=== PATIENT | female | born 1960 | race Caucasian/White ===

== ENCOUNTER 2017-10-23 14:01 | Day surgery (SDC) | payer OTHER ==
[~2017-10-23] VITALS: Ht 165.1 cm; Wt 103.6 kg
[~2017-10-23 14:01] MED LIST: ALBIPROI INH; ALBU90OI INH; ALBU90OI61 INH; AMLO10 PO; AMLO5 PO; ANORO ELLIPTA1 EACH INH; AZIT250 PO; BUPR150ER PO; CEPH500 PO; CODGUAEL PO; Citalopram HBr10 MG PO; FLUSAL1005 INH; Flonase 0.05% N16 GM; HYDACE5 PO; HYDR1TAB94 PO; LEVSOD100 PO; LEVSOD150 PO; LOSA25 PO; LOSA50 PO; MECL25 PO; NITR100CA PO; Naprosyn375 MG PO; Omeprazole20 M1 PO; PRED20 PO; QVAR REDIHALE10.6 G1 INH; STIOLTO RESPIMAT4 GM INH; SULTRIDS PO; Synthroid175 MCG PO; VARE1 PO; [UNRECOGNIZED DRUG - REMARK]
[2017-10-23] MEDS ORDERED: COMBIVENT RESPIM4 GM (14:19)
[2017-10-23] MEDS ORDERED: Flovent 44 mc10.6 GM (14:21)
[2017-10-23] MEDS ORDERED: Percocet 5-3251 EACH (14:21)
== END 2017-10-23 15:42 | disposition home or self-care (01) ==
LOC: ORSCSDS 14:01
PROVIDERS: Internal Medicine Gastroenterology
PROC: 0D758ZZ Dilation of Esophagus, Via Natural or Artificial Opening Endoscopic (ICD-10-PCS; 2017-10-23)
PROC: 0DB68ZX Excision of Stomach, Via Natural or Artificial Opening Endoscopic, Diagnostic (ICD-10-PCS; principal; 2017-10-23 15:30)
DX: R13.10 Dysphagia, unspecified (principal); K29.70 Gastritis, unspecified, without bleeding; K21.9 Gastro-esophageal reflux disease without esophagitis; R10.9 Unspecified abdominal pain; J44.9 Chronic obstructive pulmonary disease, unspecified; E03.9 Hypothyroidism, unspecified; Z68.38 Body mass index [BMI] 38.0-38.9, adult; F17.210 Nicotine dependence, cigarettes, uncomplicated; E66.9 Obesity, unspecified; Z79.899 Other long term (current) drug therapy
CPT/HCPCS: J2250; J7120

== ENCOUNTER 2017-11-06 00:36 | Observation (INO) | payer OTHER ==
[~2017-11-06] VITALS: Ht 165.1 cm; Wt 82.7 kg
[~2017-11-06 00:36] MED LIST changes: +COMBIVENT RESPIM4 GM; +Flovent 44 mc10.6 GM INH; +Percocet 5-3251 EACH PO
[2017-11-06] MEDS ORDERED: Prednisone20 MG PO (01:53)
[2017-11-06 02:29] LABS: BASOPHILS ABSOLUTE AUTO 0.11 K/mm3 (0.00-0.23); BASOPHILS PERCENT AUTO 1 % (0-2); EOSINOPHILS ABSOLUTE AUTO 0.32 K/mm3 (0.00-0.68); EOSINOPHILS PERCENT AUTO 4 % (0-6); Hematocrit 41.3 % (33.0-51.0); Hemoglobin 13.5 g/dL (11.5-16.0); IMMATURE GRAN ABSOLUTE AUTO 0.04 K/mm3 (0.00-0.10); IMMATURE GRAN PERCENT AUTO 1 % (0-1); LYMPHOCYTES ABSOLUTE AUTO 3.86 K/mm3 (0.84-5.20); LYMPHOCYTES PERCENT AUTO 44 % (21-46); MONOCYTES ABSOLUTE AUTO 0.71 K/mm3 (0.16-1.47); MONOCYTES PERCENT AUTO 8 % (4-13); Mean Corpuscular HGB 29.2 pg (26.0-34.0); Mean Corpuscular HGB Conc 32.7 g/dL (31.5-36.5); Mean Corpuscular Volume 89 fL (80-100); Mean Platelet Volume 10.1 fL (9.1-12.4); NEUTROPHILS ABSOLUTE AUTO 3.74 K/mm3 (1.96-9.15); NEUTROPHILS PERCENT AUTO 43 % (41-73); Platelet Count 277 K/mm3 (150-400); RDW Coefficient Variation 13.8 % (11.7-14.2); RDW Standard Deviation 44.5 fL (35.1-46.3); Red Blood Cell Count 4.63 M/mm3 (3.80-5.20); White Blood Cell Count 8.78 K/mm3 (4.00-11.30)
[2017-11-06 02:40] LABS: Alanine Aminotransfer (ALT/SGP 38 U/L (12-78); Albumin, Blood 3.4 g/dL (3.4-5.0); Albumin/Globulin Ratio 0.8 (0.8-1.8); Alk Phos 103 U/L (50-136); Anion Gap 13 mmol/L (6-16); Aspartate Aminotrans (AST/SGOT 25 U/L (12-37); Bilirubin, Total 0.2 mg/dL (0.1-1.0); Blood Urea Nitrogen 14 mg/dL (8-24); Bun/Creatinine Ratio 14.6 (12.0-20.0); CO2, Blood 19 mmol/L (21-32); Calcium, Blood 8.1 mg/dL (8.5-10.1); Chloride, Blood 109 mmol/L (98-108); Creatinine, Blood 0.96 mg/dL (0.40-1.00); Globulin, Blood 4.4 g/dL (2.2-4.0); Glomerular Filtration Rate >60 (60-); Glucose, Blood 115 mg/dL (70-99); Potassium, Blood 3.8 mmol/L (3.5-5.5); Sodium, Blood 141 mmol/L (136-145); Total Protein, Blood 7.8 g/dL (6.4-8.2)
[2017-11-06 02:42] LABS: Influenza A Negative (NEGATIVE); Influenza B Negative (NEGATIVE)
[2017-11-06 15:30] LABS: Hematocrit 40.4 % (33.0-51.0); Hemoglobin 12.9 g/dL (11.5-16.0); Mean Corpuscular HGB 28.9 pg (26.0-34.0); Mean Corpuscular HGB Conc 31.9 g/dL (31.5-36.5); Mean Corpuscular Volume 91 fL (80-100); Mean Platelet Volume 9.9 fL (9.1-12.4); Platelet Count 230 K/mm3 (150-400); RDW Coefficient Variation 13.7 % (11.7-14.2); RDW Standard Deviation 46.4 fL (35.1-46.3); Red Blood Cell Count 4.46 M/mm3 (3.80-5.20); White Blood Cell Count 5.52 K/mm3 (4.00-11.30)
[2017-11-06 15:49] LABS: Alanine Aminotransfer (ALT/SGP 34 U/L (12-78); Albumin, Blood 3.3 g/dL (3.4-5.0); Albumin/Globulin Ratio 0.8 (0.8-1.8); Alk Phos 89 U/L (50-136); Anion Gap 9 mmol/L (6-16); Aspartate Aminotrans (AST/SGOT 22 U/L (12-37); Bilirubin, Total 0.2 mg/dL (0.1-1.0); Blood Urea Nitrogen 16 mg/dL (8-24); CO2, Blood 21 mmol/L (21-32); Calcium, Blood 8.7 mg/dL (8.5-10.1); Chloride, Blood 108 mmol/L (98-108); Creatinine, Blood 0.89 mg/dL (0.40-1.00); Globulin, Blood 4.2 g/dL (2.2-4.0); Glomerular Filtration Rate >60 (60-); Glucose, Blood 134 mg/dL (70-99); Potassium, Blood 4.8 mmol/L (3.5-5.5); Sodium, Blood 138 mmol/L (136-145); Total Protein, Blood 7.5 g/dL (6.4-8.2)
[2017-11-08 05:27] LABS: BASOPHILS ABSOLUTE AUTO 0.01 K/mm3 (0.00-0.23); BASOPHILS PERCENT AUTO 0 % (0-2); EOSINOPHILS PERCENT AUTO 0 % (0-6); Hematocrit 39.7 % (33.0-51.0); Hemoglobin 12.6 g/dL (11.5-16.0); IMMATURE GRAN ABSOLUTE AUTO 0.19 K/mm3 (0.00-0.10); IMMATURE GRAN PERCENT AUTO 2 % (0-1); LYMPHOCYTES ABSOLUTE AUTO 0.64 K/mm3 (0.84-5.20); LYMPHOCYTES PERCENT AUTO 7 % (21-46); MONOCYTES ABSOLUTE AUTO 0.35 K/mm3 (0.16-1.47); MONOCYTES PERCENT AUTO 4 % (4-13); Mean Corpuscular HGB Conc 31.7 g/dL (31.5-36.5); Mean Corpuscular Volume 92 fL (80-100); Mean Platelet Volume 10.7 fL (9.1-12.4); NEUTROPHILS ABSOLUTE AUTO 7.72 K/mm3 (1.96-9.15); NEUTROPHILS PERCENT AUTO 87 % (41-73); Platelet Count 240 K/mm3 (150-400); RDW Coefficient Variation 14.3 % (11.7-14.2); RDW Standard Deviation 48.1 fL (35.1-46.3); Red Blood Cell Count 4.34 M/mm3 (3.80-5.20); White Blood Cell Count 8.91 K/mm3 (4.00-11.30)
[2017-11-08] MEDS ORDERED: ALBU90OI INH (12:27)
[2017-11-08] MEDS ORDERED: ACET325 PO (12:32)
[2017-11-08] MEDS ORDERED: BISA10S PR (12:37)
[2017-11-08] MEDS ORDERED: Tessalon200 MG PO (12:38)
[2017-11-08] MEDS ORDERED: ROBITUSSIN100 MG/5 M PO (12:40)
[2017-11-08] MEDS ORDERED: DOCU100 PO (12:40)
[2017-11-08] MEDS ORDERED: ONDA4ODT PO (12:41)
[2017-11-08] MEDS ORDERED: NICO21TP TOP (12:42)
[2017-11-08] MEDS ORDERED: AZIT500 PO (12:43)
[2017-11-08] MEDS ORDERED: ALBU3IS INH (13:09)
== END 2017-11-08 16:10 | disposition home or self-care (01) ==
LOC: ER 00:36 → MEDS 00:37 → ER 02:16 → MEDS 02:54 → ENPENDDIS 11-08 12:00 → MEDS 11-08 16:10
PROVIDERS: Emergency Medicine; Family Medicine; Internal Medicine
DX: J44.1 Chronic obstructive pulmonary disease with (acute) exacerbation (principal); F41.9 Anxiety disorder, unspecified; I10 Essential (primary) hypertension; E03.9 Hypothyroidism, unspecified; F41.0 Panic disorder [episodic paroxysmal anxiety]; F17.200 Nicotine dependence, unspecified, uncomplicated; Z79.899 Other long term (current) drug therapy; Z79.01 Long term (current) use of anticoagulants
CPT/HCPCS: 36415; 71046; 80053; 83880; 84145; 84443; 85025; 85027; 87804; 90686; 94640; 94760; 94762; 96365; 96372; 96374; 96375; 96376; 99285-25; G0378; J0456; J1650; J1885; J2930; J3010; J3475; J7030; J7050

== ENCOUNTER 2018-02-19 23:36 | Emergency (ER) | payer OTHER ==
[~2018-02-19] VITALS: Ht 162.6 cm; Wt 108.9 kg
[~2018-02-19 23:36] MED LIST changes: +ACET325 PO; +ALBU3IS INH; +AZIT500 PO; +BISA10S PR; +DOCU100 PO; +NICO21TP TOP; +ONDA4ODT PO; +Prednisone20 MG PO; +ROBITUSSIN100 MG/5 M PO; +Tessalon200 MG PO
[2018-02-20] MEDS ORDERED: NICO21TP TOP (00:19)
[2018-02-20 00:23] LABS: BASOPHILS ABSOLUTE AUTO 0.11 K/mm3 (0.00-0.23); BASOPHILS PERCENT AUTO 1 % (0-2); EOSINOPHILS PERCENT AUTO 4 % (0-6); Hematocrit 40.5 % (33.0-51.0); Hemoglobin 13.3 g/dL (11.5-16.0); IMMATURE GRAN ABSOLUTE AUTO 0.05 K/mm3 (0.00-0.10); IMMATURE GRAN PERCENT AUTO 1 % (0-1); LYMPHOCYTES ABSOLUTE AUTO 2.81 K/mm3 (0.84-5.20); LYMPHOCYTES PERCENT AUTO 27 % (21-46); MONOCYTES ABSOLUTE AUTO 0.91 K/mm3 (0.16-1.47); MONOCYTES PERCENT AUTO 9 % (4-13); Mean Corpuscular HGB 29.1 pg (26.0-34.0); Mean Corpuscular HGB Conc 32.8 g/dL (31.5-36.5); Mean Corpuscular Volume 89 fL (80-100); Mean Platelet Volume 10.1 fL (9.1-12.4); NEUTROPHILS PERCENT AUTO 58 % (41-73); Platelet Count 260 K/mm3 (150-400); RDW Coefficient Variation 13.2 % (11.7-14.2); RDW Standard Deviation 43.4 fL (35.1-46.3); Red Blood Cell Count 4.57 M/mm3 (3.80-5.20); White Blood Cell Count 10.28 K/mm3 (4.00-11.30)
[2018-02-20 00:43] LABS: Alanine Aminotransfer (ALT/SGP 36 U/L (12-78); Albumin, Blood 3.5 g/dL (3.4-5.0); Albumin/Globulin Ratio 0.8 (0.8-1.8); Alk Phos 91 U/L (50-136); Anion Gap 11 mmol/L (6-16); Aspartate Aminotrans (AST/SGOT 26 U/L (12-37); Bilirubin, Total 0.2 mg/dL (0.1-1.0); Blood Urea Nitrogen 19 mg/dL (8-24); Bun/Creatinine Ratio 22.1 (12.0-20.0); CO2, Blood 20 mmol/L (21-32); Calcium, Blood 8.8 mg/dL (8.5-10.1); Chloride, Blood 108 mmol/L (98-108); Creatinine, Blood 0.86 mg/dL (0.40-1.00); Globulin, Blood 4.2 g/dL (2.2-4.0); Glomerular Filtration Rate >60 (60-); Glucose, Blood 88 mg/dL (70-99); Potassium, Blood 3.9 mmol/L (3.5-5.5); Sodium, Blood 139 mmol/L (136-145); Total Protein, Blood 7.7 g/dL (6.4-8.2); Troponin I <0.015 ng/mL (0.000-0.040)
[2018-02-20] MEDS ORDERED: Prednisone20 MG PO (00:59)
== END 2018-02-20 01:59 | disposition home or self-care (01) ==
LOC: ER 23:36
PROVIDERS: Emergency Medicine
DX: J44.1 Chronic obstructive pulmonary disease with (acute) exacerbation (principal); Z79.899 Other long term (current) drug therapy; I10 Essential (primary) hypertension; E03.9 Hypothyroidism, unspecified; F41.9 Anxiety disorder, unspecified; F17.200 Nicotine dependence, unspecified, uncomplicated
CPT/HCPCS: 36415; 71046; 80053; 84484; 85025; 93005; 93010; 94640; 96374; 99285-25; J2930

== ENCOUNTER 2018-04-23 00:05 | Emergency (ER) | payer OTHER ==
[~2018-04-23] VITALS: Ht 162.6 cm; Wt 112.0 kg
[2018-04-23] MEDS ORDERED: Prednisone20 MG PO (02:06)
== END 2018-04-23 02:21 | disposition home or self-care (01) ==
LOC: ER 00:05
DX: J44.1 Chronic obstructive pulmonary disease with (acute) exacerbation (principal); Z79.899 Other long term (current) drug therapy; Z79.52 Long term (current) use of systemic steroids; I10 Essential (primary) hypertension; E03.9 Hypothyroidism, unspecified; F41.9 Anxiety disorder, unspecified; F17.210 Nicotine dependence, cigarettes, uncomplicated
CPT/HCPCS: 71046; 93005; 93010; 94640; 96374; 99285-25; J2930; J7030

== ENCOUNTER 2018-08-07 09:45 | Day surgery (SDC) | payer OTHER ==
[~2018-08-07] VITALS: Ht 165.1 cm; Wt 107.4 kg
[2018-08-07] MEDS ORDERED: Zofran4 MG (10:27)
[2018-08-07] MEDS ORDERED: OSCIMIN0.125 MG (10:28)
--- NOTE | 2018-08-07 12:38 | NUR ---
08/07/18 1238 Antonina Galicia 1221 PT. SAT UP TO SIT AT SIDE OF BED & THEN FELT DIZZY. PT. WANTED TO WAIT TO GET DRESSED. PT. BACK INTO BED. PT. VERBALIZES HX OF GETTING DIZZY SPELLS & HAS A PROCEDURE SCHEDULED TO CHECK HER DIZZINESS.
== END 2018-08-07 12:29 | disposition home or self-care (01) ==
LOC: ORSCSDS 09:45
PROVIDERS: Internal Medicine Gastroenterology
PROC: 0DBE8ZX Excision of Large Intestine, Via Natural or Artificial Opening Endoscopic, Diagnostic (ICD-10-PCS; principal; 2018-08-07 11:15)
PROC: 0DBK8ZX Excision of Ascending Colon, Via Natural or Artificial Opening Endoscopic, Diagnostic (ICD-10-PCS; principal; 2018-08-07 11:15)
PROC: 0DBN8ZX Excision of Sigmoid Colon, Via Natural or Artificial Opening Endoscopic, Diagnostic (ICD-10-PCS; principal; 2018-08-07 11:15)
DX: R19.7 Diarrhea, unspecified (principal); R10.13 Epigastric pain; K52.9 Noninfective gastroenteritis and colitis, unspecified; K63.5 Polyp of colon; K64.8 Other hemorrhoids; F17.210 Nicotine dependence, cigarettes, uncomplicated; I10 Essential (primary) hypertension; J44.9 Chronic obstructive pulmonary disease, unspecified; E06.3 Autoimmune thyroiditis; Z79.899 Other long term (current) drug therapy
CPT/HCPCS: 88305; J2250; J2704; J7120

== ENCOUNTER 2018-10-28 21:42 | Emergency (ER) | payer OTHER ==
[~2018-10-28] VITALS: Ht 165.1 cm; Wt 106.6 kg
[~2018-10-28 21:42] MED LIST changes: +OSCIMIN0.125 MG; +Zofran4 MG
[2018-10-28 22:15] LABS: BASOPHILS PERCENT AUTO 1 % (0-2); EOSINOPHILS ABSOLUTE AUTO 0.43 K/mm3 (0.00-0.68); EOSINOPHILS PERCENT AUTO 4 % (0-6); Hematocrit 42.5 % (33.0-51.0); Hemoglobin 13.8 g/dL (11.5-16.0); IMMATURE GRAN ABSOLUTE AUTO 0.03 K/mm3 (0.00-0.10); IMMATURE GRAN PERCENT AUTO 0 % (0-1); LYMPHOCYTES ABSOLUTE AUTO 3.11 K/mm3 (0.84-5.20); LYMPHOCYTES PERCENT AUTO 31 % (21-46); MONOCYTES ABSOLUTE AUTO 0.81 K/mm3 (0.16-1.47); MONOCYTES PERCENT AUTO 8 % (4-13); Mean Corpuscular HGB 28.6 pg (26.0-34.0); Mean Corpuscular HGB Conc 32.5 g/dL (31.5-36.5); Mean Corpuscular Volume 88 fL (80-100); Mean Platelet Volume 10.2 fL (9.1-12.4); NEUTROPHILS ABSOLUTE AUTO 5.59 K/mm3 (1.96-9.15); NEUTROPHILS PERCENT AUTO 56 % (41-73); Platelet Count 299 K/mm3 (150-400); RDW Coefficient Variation 14.4 % (11.7-14.2); RDW Standard Deviation 46.2 fL (35.1-46.3); Red Blood Cell Count 4.82 M/mm3 (3.80-5.20); White Blood Cell Count 10.07 K/mm3 (4.00-11.30)
[2018-10-28 22:34] LABS: Alanine Aminotransfer (ALT/SGP 27 U/L (12-78); Albumin, Blood 3.4 g/dL (3.4-5.0); Albumin/Globulin Ratio 0.8 (0.8-1.8); Alk Phos 95 U/L (50-136); Anion Gap 10 mmol/L (6-16); Aspartate Aminotrans (AST/SGOT 25 U/L (12-37); Bilirubin, Total 0.1 mg/dL (0.1-1.0); Blood Urea Nitrogen 17 mg/dL (8-24); Bun/Creatinine Ratio 16.8 (12.0-20.0); CO2, Blood 24 mmol/L (21-32); Calcium, Blood 8.9 mg/dL (8.5-10.1); Chloride, Blood 107 mmol/L (98-108); Creatinine, Blood 1.01 mg/dL (0.40-1.00); Glomerular Filtration Rate >60 (60-); Glucose, Blood 92 mg/dL (70-99); Potassium, Blood 3.9 mmol/L (3.5-5.5); Sodium, Blood 141 mmol/L (136-145); Total Protein, Blood 7.4 g/dL (6.4-8.2)
[2018-10-29] MEDS ORDERED: Prednisone20 MG PO (00:20)
== END 2018-10-29 01:11 | disposition home or self-care (01) ==
LOC: ER 21:42
PROVIDERS: Emergency Medicine
DX: J44.9 Chronic obstructive pulmonary disease, unspecified (principal); R06.03 Acute respiratory distress; R09.02 Hypoxemia; Z79.899 Other long term (current) drug therapy; Z79.52 Long term (current) use of systemic steroids; I10 Essential (primary) hypertension; E03.9 Hypothyroidism, unspecified; F41.9 Anxiety disorder, unspecified; F17.210 Nicotine dependence, cigarettes, uncomplicated
CPT/HCPCS: 36415; 71046; 80053; 85025; 93005; 93010; 94644; 96374; 99285-25; J2930

== ENCOUNTER 2018-10-30 00:57 | Inpatient (IN) | payer OTHER ==
[~2018-10-30] VITALS: Ht 165.1 cm; Wt 110.5 kg
[2018-10-30 01:21] LABS: PCO2 Arterial 30.7 mmHg (35-45); PO2 Arterial 90.2 mmHg (80-100); pH Blood Arterial 7.38 (7.35-7.45)
[2018-10-30 01:22] LABS: BASOPHILS ABSOLUTE AUTO 0.03 K/mm3 (0.00-0.23); BASOPHILS PERCENT AUTO 0 % (0-2); EOSINOPHILS PERCENT AUTO 0 % (0-6); Hematocrit 43.5 % (33.0-51.0); IMMATURE GRAN ABSOLUTE AUTO 0.13 K/mm3 (0.00-0.10); IMMATURE GRAN PERCENT AUTO 1 % (0-1); LYMPHOCYTES ABSOLUTE AUTO 2.31 K/mm3 (0.84-5.20); LYMPHOCYTES PERCENT AUTO 15 % (21-46); MONOCYTES ABSOLUTE AUTO 0.45 K/mm3 (0.16-1.47); MONOCYTES PERCENT AUTO 3 % (4-13); Mean Corpuscular HGB 28.5 pg (26.0-34.0); Mean Corpuscular HGB Conc 32.2 g/dL (31.5-36.5); Mean Corpuscular Volume 89 fL (80-100); Mean Platelet Volume 10.3 fL (9.1-12.4); NEUTROPHILS ABSOLUTE AUTO 12.62 K/mm3 (1.96-9.15); NEUTROPHILS PERCENT AUTO 81 % (41-73); Platelet Count 356 K/mm3 (150-400); RDW Coefficient Variation 14.7 % (11.7-14.2); RDW Standard Deviation 47.9 fL (35.1-46.3); Red Blood Cell Count 4.91 M/mm3 (3.80-5.20); White Blood Cell Count 15.54 K/mm3 (4.00-11.30)
[2018-10-30 01:42] LABS: Alanine Aminotransfer (ALT/SGP 25 U/L (12-78); Albumin, Blood 3.6 g/dL (3.4-5.0); Albumin/Globulin Ratio 0.9 (0.8-1.8); Alk Phos 90 U/L (50-136); Anion Gap 13 mmol/L (6-16); Aspartate Aminotrans (AST/SGOT 25 U/L (12-37); Bilirubin, Total 0.2 mg/dL (0.1-1.0); Blood Urea Nitrogen 19 mg/dL (8-24); Bun/Creatinine Ratio 20.3 (12.0-20.0); CO2, Blood 20 mmol/L (21-32); Calcium, Blood 9.1 mg/dL (8.5-10.1); Chloride, Blood 109 mmol/L (98-108); Creatinine, Blood 0.94 mg/dL (0.40-1.00); Globulin, Blood 4.2 g/dL (2.2-4.0); Glomerular Filtration Rate >60 (60-); Glucose, Blood 133 mg/dL (70-99); Potassium, Blood 3.8 mmol/L (3.5-5.5); Sodium, Blood 142 mmol/L (136-145); Total Protein, Blood 7.8 g/dL (6.4-8.2); Troponin I <0.015 ng/mL (0.000-0.040)
--- NOTE | 2018-10-30 07:34 | NUR ---
rt by to see pt neb given pt having h/a will call dr mcgill re toradol dose
--- NOTE | 2018-10-30 09:01 | NUR ---
MEDS GIVEN SCHED PT SITTING UP ON EDGE OF THE BED
--- NOTE | 2018-10-30 09:55 | NUR ---
DR FARNSWORTH BY TO SEE PT
--- NOTE | 2018-10-30 10:10 | NUR ---
K PAD PLACED TO PT'S NECK
--- NOTE | 2018-10-30 11:54 | NUR ---
RT BY TO SEE PT FOR NEB TX
--- NOTE | 2018-10-30 13:26 | NUR ---
PT REQ MED FOR H/A
[2018-10-30 16:11] LABS: Adenovirus Not Detected (NOT DETECT); Bordetella pertussis Not Detected (NOT DETECT); Chlamydophila pneumoniae Not Detected (NOT DETECT); Coronavirus 229E Not Detected (NOT DETECT); Coronavirus HKU1 Not Detected (NOT DETECT); Coronavirus NL63 Not Detected (NOT DETECT); Coronavirus OC43 Not Detected (NOT DETECT); Human Metapneumovirus Not Detected (NOT DETECT); Human Rhinovirus/Enterovirus Not Detected (NOT DETECT); Influenza A Not Detected (NOT DETECT); Influenza A/2009-H1 Not Detected (NOT DETECT); Influenza A/H1 Not Detected (NOT DETECT); Influenza A/H3 Not Detected (NOT DETECT); Influenza B Not Detected (NOT DETECT); Mycoplasma pneumoniae Not Detected (NOT DETECT); Parainfluenza Virus 1 Not Detected (NOT DETECT); Parainfluenza Virus 2 Not Detected (NOT DETECT); Parainfluenza Virus 3 Not Detected (NOT DETECT); Parainfluenza Virus 4 Not Detected (NOT DETECT); Respiratory Syncytial Virus Not Detected (NOT DETECT)
--- NOTE | 2018-10-30 17:56 | NUR ---
pt sitting up on edge of the bed eating dinner daughter at bedside reviewed results of viral panel neg with pt and her daughter
[2018-10-31 04:33] LABS: BASOPHILS ABSOLUTE AUTO 0.01 K/mm3 (0.00-0.23); BASOPHILS PERCENT AUTO 0 % (0-2); EOSINOPHILS PERCENT AUTO 0 % (0-6); Hematocrit 39.8 % (33.0-51.0); Hemoglobin 12.8 g/dL (11.5-16.0); IMMATURE GRAN ABSOLUTE AUTO 0.11 K/mm3 (0.00-0.10); IMMATURE GRAN PERCENT AUTO 1 % (0-1); LYMPHOCYTES ABSOLUTE AUTO 1.03 K/mm3 (0.84-5.20); LYMPHOCYTES PERCENT AUTO 11 % (21-46); MONOCYTES ABSOLUTE AUTO 0.38 K/mm3 (0.16-1.47); MONOCYTES PERCENT AUTO 4 % (4-13); Mean Corpuscular HGB 28.5 pg (26.0-34.0); Mean Corpuscular HGB Conc 32.2 g/dL (31.5-36.5); Mean Corpuscular Volume 89 fL (80-100); Mean Platelet Volume 10.3 fL (9.1-12.4); NEUTROPHILS ABSOLUTE AUTO 8.23 K/mm3 (1.96-9.15); NEUTROPHILS PERCENT AUTO 84 % (41-73); Platelet Count 243 K/mm3 (150-400); RDW Coefficient Variation 14.9 % (11.7-14.2); RDW Standard Deviation 48.7 fL (35.1-46.3); Red Blood Cell Count 4.49 M/mm3 (3.80-5.20); White Blood Cell Count 9.76 K/mm3 (4.00-11.30)
[2018-10-31 04:57] LABS: Albumin, Blood 3.4 g/dL (3.4-5.0); Anion Gap 3 mmol/L (6-16); Blood Urea Nitrogen 22 mg/dL (8-24); Bun/Creatinine Ratio 24.7 (12.0-20.0); CO2, Blood 28 mmol/L (21-32); Calcium, Blood 9.3 mg/dL (8.5-10.1); Chloride, Blood 107 mmol/L (98-108); Creatinine, Blood 0.89 mg/dL (0.40-1.00); Glomerular Filtration Rate >60 (60-); Glucose, Blood 131 mg/dL (70-99); Phosphorus, Blood 3.1 mg/dL (2.5-4.9); Potassium, Blood 4.5 mmol/L (3.5-5.5); Sodium, Blood 138 mmol/L (136-145)
--- NOTE | 2018-10-31 06:27 | NUR ---
Patient alert and oriented x4. Vitals stable. supplemental oxygen at 2L per NC. Complaints of migraine and neck pain. Lung sounds Rhonchi/wheezing. Duonebs given PRN. Productive cough. Ambulating to bathroom independently. Voiding freely.
--- NOTE | 2018-10-31 18:36 | NUR ---
SHIFT SUMMARY PT INDEPENDANT IN RM. CONTINUE TO ENCOURAGE AMBULATION. PT VOIDING AND TOLERATING FOODS. PAIN MANAGED WITH MEDICATION PER ORDERS AND HEAT PACK ON NECK. PT HAD BREATHING TREATMENTS WITH RT TODAY SCHEDULED AND HAS BEEN ON O2 THROUGH THE DAY. PT WEANED TO 1L O2 VIA NC AND SATS >95%. FAMILY HAS BEEN IN TO SEE PT TODAY WELL.
--- NOTE | 2018-11-01 07:11 | NUR ---
Patient A/0 x4. Vital signs stable. On supplemental oxygen at 1L per NC. Receiving breathing treatments from RT. Complaints of neck and back pain. Ambulating to bathroom independently. Voiding Freely. IV to right AC flushes with ease. Patient slept throughout night.
--- NOTE | 2018-11-01 18:35 | NUR ---
SHIFT SUMMARY PT INDEPENDANT IN ROOM, TOLERATIN FOOD AND FLUIDS, AND VOIDING. PAIN HAS BEEN CONTROLLED WITH PO PAIN MEDS PER ORDER. PT HAS HAD BREATHING TREATMENTS TODAY WITH RT. REPORTS FEELING BETTER TODAY.
--- NOTE | 2018-11-02 06:40 | NUR ---
patient alert and oriented. Vital signs stable. On room air. Ambulating to bathroom independently. Voiding. Breathing treatments given by RT. Pt states she feels much better than yesterday.
--- NOTE | 2018-11-02 08:39 | NUR ---
CELSO IN TO SEE PT AT THIS TIME
--- NOTE | 2018-11-02 16:26 | NUR ---
SHIFT SUMMARY A&O, VSS, SPO2 95% RA, 3X BREATHING TREATMENTS TODAY. PT C/O HEADACHE AND PRODUCTIVE COUGH INTERMITTENTLY T/O SHIFT, TREATED PER EMAR AND ENCOURAGED I.S./ FLUTTER VALVE. IND AMBULATION TO BATHROOM AND IN HALLWAY. DENIED ANY SOB OR DYSPNEA. REPORTS VOIDING AND BM WITHOUT DIFFICULTY TODAY. PT IS CURRENTLY VISITING WITH FAMILY AT BEDSIDE.
--- NOTE | 2018-11-03 07:34 | NUR ---
PT HAD NO ACUTE CHANGES T/O NIGHT; VSS. SATS >90% ON RA. LUNGS CLEAR, DIM/TIGHT IN BASES. PT DID CALL FOR 1 PRN RT TX, REP IMPROVED WB AFTER TX. PT CONT TO HAVE HARSH NON PROD COUGH. PT AMB INDEP IN ROOM, DOES BECOME SOB W/AMBULATION. PAIN MGD PER EMAR W/REP RELIEF. PT USING CALL LIGHT FOR ASSISTANCE, REP GIVEN TO DAY RN.
--- NOTE | 2018-11-03 09:27 | NUR ---
DENIES ANY PAIN AT THIS TIME, HAS NONPRODUCTIVE COUGH, LUNGS CLEAR, DR. HOUSTON IN TO SEE PT EARLIER THIS AM, PLAN TO DC HOME TODAY.
[2018-11-03] MEDS ORDERED: PRED20 PO (10:14)
[2018-11-03] MEDS ORDERED: AZIT250 PO (10:15)
[2018-11-03] MEDS ORDERED: Nicoderm Cq1 EAC1 TOP (10:16)
--- NOTE | 2018-11-03 12:41 | NUR ---
DC'D HOME, DC INSTRUCTIONS GIVEN, VERBALIZED UNDERSTANDING.
== END 2018-11-03 12:42 | disposition home or self-care (01) | DRG 189 ==
LOC: ER 00:57 → MEDS 02:30 → SURS 02:40
PROVIDERS: Emergency Medicine; Family Medicine; ADMIT Hospitalist
DX: J96.01 Acute respiratory failure with hypoxia (principal); J44.1 Chronic obstructive pulmonary disease with (acute) exacerbation; E03.9 Hypothyroidism, unspecified; F32.9 Major depressive disorder, single episode, unspecified; M79.7 Fibromyalgia; K21.9 Gastro-esophageal reflux disease without esophagitis; I10 Essential (primary) hypertension; E66.01 Morbid (severe) obesity due to excess calories; F17.210 Nicotine dependence, cigarettes, uncomplicated; Z68.39 Body mass index [BMI] 39.0-39.9, adult; Z79.51 Long term (current) use of inhaled steroids; Z79.52 Long term (current) use of systemic steroids; Z79.899 Other long term (current) drug therapy
CPT/HCPCS: 0099U; 36415; 36600; 71046; 80053; 80069; 82803; 84484; 85025; 93005; 93010; 94640; 94644; 94667; 94760; 96361; 96374; 96375; 98960; 99285-25; J1650; J2270; J2930; J7030

== ENCOUNTER → 2018-12-05 | Outpatient (CLI) | payer OTHER ==
[~2018-12-05] MED LIST changes: +Nicoderm Cq1 EAC1 TOP
== END | disposition home or self-care (01) ==
LOC: LAB 10:50 → LAB SHORT 10:50
DX: K52.9 Noninfective gastroenteritis and colitis, unspecified (principal)
CPT/HCPCS: 83993

== ENCOUNTER → 2019-01-30 | Outpatient (CLI) | payer OTHER ==
[~2019-01-30] MED LIST changes: -ALBIPROI INH; +Balsalazide Di750 MG PO; +COMBIVENT RESPIM4 GM INH; +LEVO750 PO; -Nicoderm Cq1 EAC1 TOP; +VENL37.5ER PO
== END | disposition home or self-care (01) ==
LOC: LAB SHORT 13:30 → LAB 13:30
DX: J20.9 Acute bronchitis, unspecified (principal)
CPT/HCPCS: 87070; 87205

== ENCOUNTER 2019-02-01 00:09 | Observation (INO) | payer OTHER ==
[~2019-02-01] VITALS: Ht 165.1 cm; Wt 106.8 kg
[~2019-02-01 00:09] MED LIST changes: -Balsalazide Di750 MG PO; -LEVO750 PO; -VENL37.5ER PO
[2019-02-01 00:45] LABS: BASOPHILS ABSOLUTE AUTO 0.06 K/mm3 (0.00-0.23); BASOPHILS PERCENT AUTO 1 % (0-2); EOSINOPHILS ABSOLUTE AUTO 0.01 K/mm3 (0.00-0.68); EOSINOPHILS PERCENT AUTO 0 % (0-6); Hematocrit 39.3 % (33.0-51.0); Hemoglobin 12.8 g/dL (11.5-16.0); IMMATURE GRAN ABSOLUTE AUTO 0.11 K/mm3 (0.00-0.10); IMMATURE GRAN PERCENT AUTO 1 % (0-1); LYMPHOCYTES ABSOLUTE AUTO 2.84 K/mm3 (0.84-5.20); LYMPHOCYTES PERCENT AUTO 22 % (21-46); MONOCYTES ABSOLUTE AUTO 0.54 K/mm3 (0.16-1.47); MONOCYTES PERCENT AUTO 4 % (4-13); Mean Corpuscular HGB 29.2 pg (26.0-34.0); Mean Corpuscular HGB Conc 32.6 g/dL (31.5-36.5); Mean Corpuscular Volume 90 fL (80-100); Mean Platelet Volume 10.1 fL (9.1-12.4); NEUTROPHILS ABSOLUTE AUTO 9.53 K/mm3 (1.96-9.15); NEUTROPHILS PERCENT AUTO 73 % (41-73); Platelet Count 320 K/mm3 (150-400); RDW Coefficient Variation 13.7 % (11.7-14.2); RDW Standard Deviation 45.2 fL (35.1-46.3); Red Blood Cell Count 4.38 M/mm3 (3.80-5.20); White Blood Cell Count 13.09 K/mm3 (4.00-11.30)
[2019-02-01 01:06] LABS: Alanine Aminotransfer (ALT/SGP 35 U/L (12-78); Albumin, Blood 3.6 g/dL (3.4-5.0); Albumin/Globulin Ratio 0.9 (0.8-1.8); Alk Phos 84 U/L (50-136); Anion Gap 11 mmol/L (6-16); Aspartate Aminotrans (AST/SGOT 26 U/L (12-37); Bilirubin, Total 0.2 mg/dL (0.1-1.0); Blood Urea Nitrogen 19 mg/dL (8-24); Bun/Creatinine Ratio 22.6 (12.0-20.0); CO2, Blood 19 mmol/L (21-32); Calcium, Blood 8.7 mg/dL (8.5-10.1); Chloride, Blood 109 mmol/L (98-108); Creatinine, Blood 0.84 mg/dL (0.40-1.00); Globulin, Blood 4.2 g/dL (2.2-4.0); Glomerular Filtration Rate >60 (60-); Glucose, Blood 98 mg/dL (70-99); Potassium, Blood 4.1 mmol/L (3.5-5.5); Sodium, Blood 139 mmol/L (136-145); Total Protein, Blood 7.8 g/dL (6.4-8.2); Troponin I <0.015 ng/mL (0.000-0.040)
[2019-02-01] MEDS ORDERED: VENL37.5ER PO (02:19)
[2019-02-01] MEDS ORDERED: Balsalazide Di750 MG PO (02:22)
[2019-02-01] MEDS ORDERED: ANORO ELLIPTA1 EACH INH (02:27)
--- NOTE | 2019-02-01 06:30 | NUR ---
SHIFT SUMMARY: A/OX4. MAKES NEEDS KNOWN. MAINTAINING 02 SATS WNL ON RA. LSCTA B. COARSE, HACKING, NON-PRODUCTIVE SOUNDING COUGH. EXERTIONAL DYSPNEA. RECOVERS QUICLY WITH REST. CIWA SCORE OF 4 DUE TO PT CHRONIC DIAPHORETIC SKIN, CHRONIC LOW LEVEL ANXIETY, AND MINOR HEADACHE SECOND TO COUGHING. PLEASANT AND COOPERATIVE. UP INDEPENDENTLY IN ROOM. BED LOW, CALL BUTTON IN REACH.
[2019-02-01 08:30] LABS: BASOPHILS ABSOLUTE AUTO 0.03 K/mm3 (0.00-0.23); BASOPHILS PERCENT AUTO 0 % (0-2); EOSINOPHILS PERCENT AUTO 0 % (0-6); Hemoglobin 13.4 g/dL (11.5-16.0); IMMATURE GRAN ABSOLUTE AUTO 0.13 K/mm3 (0.00-0.10); IMMATURE GRAN PERCENT AUTO 1 % (0-1); LYMPHOCYTES PERCENT AUTO 12 % (21-46); MONOCYTES ABSOLUTE AUTO 0.08 K/mm3 (0.16-1.47); MONOCYTES PERCENT AUTO 1 % (4-13); Mean Corpuscular HGB 28.8 pg (26.0-34.0); Mean Corpuscular HGB Conc 31.9 g/dL (31.5-36.5); Mean Corpuscular Volume 90 fL (80-100); Mean Platelet Volume 9.9 fL (9.1-12.4); NEUTROPHILS ABSOLUTE AUTO 8.95 K/mm3 (1.96-9.15); NEUTROPHILS PERCENT AUTO 85 % (41-73); Platelet Count 284 K/mm3 (150-400); RDW Standard Deviation 46.4 fL (35.1-46.3); Red Blood Cell Count 4.65 M/mm3 (3.80-5.20); White Blood Cell Count 10.49 K/mm3 (4.00-11.30)
[2019-02-01 08:47] LABS: Adenovirus Not Detected (NOT DETECT); Bordetella pertussis Not Detected (NOT DETECT); Chlamydophila pneumoniae Not Detected (NOT DETECT); Coronavirus 229E Not Detected (NOT DETECT); Coronavirus HKU1 Not Detected (NOT DETECT); Coronavirus NL63 Not Detected (NOT DETECT); Coronavirus OC43 Not Detected (NOT DETECT); Human Metapneumovirus Not Detected (NOT DETECT); Human Rhinovirus/Enterovirus Not Detected (NOT DETECT); Influenza A Not Detected (NOT DETECT); Influenza A/2009-H1 Not Detected (NOT DETECT); Influenza A/H1 Not Detected (NOT DETECT); Influenza A/H3 Not Detected (NOT DETECT); Influenza B Not Detected (NOT DETECT); Mycoplasma pneumoniae Not Detected (NOT DETECT); Parainfluenza Virus 1 Not Detected (NOT DETECT); Parainfluenza Virus 2 Not Detected (NOT DETECT); Parainfluenza Virus 3 Not Detected (NOT DETECT); Parainfluenza Virus 4 Not Detected (NOT DETECT); Respiratory Syncytial Virus Not Detected (NOT DETECT)
[2019-02-01 08:50] LABS: Alanine Aminotransfer (ALT/SGP 28 U/L (12-78); Albumin, Blood 3.4 g/dL (3.4-5.0); Albumin/Globulin Ratio 0.8 (0.8-1.8); Alk Phos 82 U/L (50-136); Anion Gap 8 mmol/L (6-16); Aspartate Aminotrans (AST/SGOT 19 U/L (12-37); Bilirubin, Total 0.3 mg/dL (0.1-1.0); Blood Urea Nitrogen 20 mg/dL (8-24); Bun/Creatinine Ratio 25.3 (12.0-20.0); CO2, Blood 22 mmol/L (21-32); Calcium, Blood 8.6 mg/dL (8.5-10.1); Chloride, Blood 106 mmol/L (98-108); Creatinine, Blood 0.79 mg/dL (0.40-1.00); Globulin, Blood 4.3 g/dL (2.2-4.0); Glomerular Filtration Rate >60 (60-); Glucose, Blood 148 mg/dL (70-99); Potassium, Blood 4.4 mmol/L (3.5-5.5); Sodium, Blood 136 mmol/L (136-145); Total Protein, Blood 7.7 g/dL (6.4-8.2)
--- NOTE | 2019-02-01 17:54 | NUR ---
SHIFT SUMMARY PT AXO, PLEASANT AND COOPERATIVE WITH CARE. COMPLAINED OF HEADACHE, MEDICATED PER EMAR. CIWA PER PROTOCOL, MEDICATED PER EMAR AND PROTOCOL. PT STATES THAT SHE THINKS THAT HER SYMPTOMS ARE CHRONIC CONCERNS AND NOT ACUTE WITHDRAWL, HOWEVER, PT STATES THAT SHE DRINKS A 6 PACK OF BEERS MOST NIGHTS OF THE WEEK BUT THAT SOME NIGHTS SHE DOES NOT DRINK AT ALL AND DOES NOT HAVE SYMPTOMS OF WD. PT STATES THAT SHE DOES FEEL BETTER AFTER MEDICATION THOUGH. PT CONTINUES TO HAVE COARSE, HACKING AND NON-PRODUCTIVE COUGH. UP AD BRAVO IN ROOM WITH STEADY GAIT. BED IN LOW POSITION, CALL LIGHT WITHIN REACH. ICE PACK PROVIDED FOR MUNOZ, PT STATES THIS HELPS WHEN PLACED ON NECK.
--- NOTE | 2019-02-02 07:34 | NUR ---
SHIFT SUMMARY: A/OX4. MAKES NEEDS KNOWN. SOB W/EXERTION. EXPIRATORY WHEEZE AUSCULTED THROUGHOUT. SLEPT BETTER LAST NIGHT. BED LOW, CALL BUTTON IN REACH.
--- NOTE | 2019-02-02 18:31 | NUR ---
SHIFT SUMMARY PT AXO, PLEASANT AND COOPERATIVE WITH CARE. PT CONTINUES TO HAVE HARSH, HACKING COUGH, NON-PRODUCTIVE THROUGHOUT THE DAY. MEDICATED PER EMAR. CIWA SCORE OF 14, MEDICATED PER EMAR. DR EDUARDO NOTIFIED. PT STATES THAT SHE IS MOTIVATED TO QUIT DRINKING ALCOHOL AND SMOKING. THERE WAS A 7 HOUR STRETCH BETWEEN CIWAS THIS SHIFT R/T PT SLEEPING PEACEFULLY. DR GARCIA HTN NOTED, DR EDUARDO NOTIFIED AND NEW ORDERS PLACED AT 1830. PT UP AD BRAVO IN ROOM. BED IN LOW POSITION, CALL LIGHT WITHIN REACH. LOST IV ACCESS, PROCEDURE NURSE NOTIFIED WHO WILL ATTEMPT NEW PERIPHERAL LINE.
--- NOTE | 2019-02-03 05:45 | NUR ---
SHIFT SUMMARY: VSS. AFEB. A/OX4. COUGH VERY HARSH AND DRY. LSCTA. 02 SATS 91-94% ON RA. TESSALON PERLES IN ADDITION TO SCHEDULED COUGH SYRUP REDUCED COUGHING TO ZERO. PT HAS SLEPT QUITE WELL MOST OF THE NIGHT. ATIVAN ADMINISTERED X1 FOR CIWA SCORE OF 9. SUBSEQUENT SCORES HAVE EACH BEEN 6. BED LOW, CALL BUTTON IN REACH.
--- NOTE | 2019-02-03 16:54 | NUR ---
SHIFT SUMMARY PT C/O MUNOZ THROUGHOUT SHIFT. MEDICATED PER EMAR. PT C/O COUGH. MEDICATED NEEDED & PER EMAR. 1200 & 1600 CIWA NEGATIVE. NO OTHER CHANGES IN ASSESSMENT AT THIS TIME. VSS. WILL CONTINUE TO MONITOR UNTIL TURNOVER IS COMPLETE.
--- NOTE | 2019-02-04 07:17 | NUR ---
SHIFT SUMMARY PT C/O COUGH AND PAIN IN BACK. MEDICATED PER EMAR FOR COUGH AND PAIN. SHE WAS INDEPENDENT IN ROOM. SHE WAS ABLE TO SLEEP T/O NIGHT. CALL LIGHT IN REACH. ERICA NEG.
[2019-02-04] MEDS ORDERED: LEVO750 PO (12:00)
[2019-02-04] MEDS ORDERED: ALBU3IS INH (12:02)
--- NOTE | 2019-02-04 13:15 | NUR ---
DISCHARGE NOTE PATIENT SIGNED DISCHARGE. IV REMOVED, DRESSING CDI. EDUCATION PROVIDED TO PATIENT WITH PATIENT REPORTING COMPREHENSION. PATIENT REPORTS WILL CALL PCP TO ATTEMPT TO GET AN APPOINTMENT PRIOR TO ALREADY SCHEDULED 03/02/19 APPT TO COMPLETE WITHIN 1 WEEK. DISCHARGE TEACHING PROVIDED ABOUT NEW MEDICATIONS AND TEACHING PRINTED AND SENT. PATIENT TO CB IF QUESTIONS OR VISIT ED IF SYMPTOMS WORSEN. PATIENT WHEELED OUT BY WC TO FAMILY VEHICLE SAFELY.
== END 2019-02-04 12:53 | disposition home or self-care (01) ==
LOC: ER 00:09 → MEDS 00:10 → ENPENDDIS 02-04 10:57 → MEDS 02-04 12:53
PROVIDERS: Physician Assistant; ADMIT Internal Medicine
DX: J44.1 Chronic obstructive pulmonary disease with (acute) exacerbation (principal); F10.239 Alcohol dependence with withdrawal, unspecified; I10 Essential (primary) hypertension; E03.9 Hypothyroidism, unspecified; F32.9 Major depressive disorder, single episode, unspecified; F17.210 Nicotine dependence, cigarettes, uncomplicated; F41.9 Anxiety disorder, unspecified; G89.29 Other chronic pain; M54.9 Dorsalgia, unspecified; K21.9 Gastro-esophageal reflux disease without esophagitis; M79.7 Fibromyalgia; E66.01 Morbid (severe) obesity due to excess calories; Z68.39 Body mass index [BMI] 39.0-39.9, adult; Z79.51 Long term (current) use of inhaled steroids; Z79.899 Other long term (current) drug therapy; Z79.52 Long term (current) use of systemic steroids; Z98.51 Tubal ligation status
CPT/HCPCS: 0099U; 36415; 71046; 80053; 83880; 84484; 85025; 93005; 93010; 94640; 94760; 96372; 96374; 96375; 96376; 99285-25; A9270; G0378; J0456; J1650; J1956; J2060; J2405; J2930; J7050; J7512

== ENCOUNTER → 2019-10-13 | Outpatient (CLI) | payer OTHER ==
[~2019-10-13] MED LIST changes: +Balsalazide Di750 MG PO; +LEVO750 PO; +VENL37.5ER PO
[2019-10-15 14:08] LABS: DOPAMINE, URINE 105 ug/L (Undefined)
[2019-10-15 17:08] LABS: METANEPHRINE, UR 39 ug/L (Undefined)
== END | disposition home or self-care (01) ==
LOC: LAB SHORT 07:00 → LAB 07:00 → LAB FUT 09-04 15:35
PROVIDERS: Internal Medicine
DX: R61 Generalized hyperhidrosis (principal)
CPT/HCPCS: 81050; 82384

== ENCOUNTER → 2020-11-29 | Outpatient (CLI) | payer OTHER ==
[~2020-11-29] MED LIST changes: +COMBIVENT RESPIM4 G1 INH
[2020-12-03 16:10] LABS: DOPAMINE, URINE 125 ug/L (Undefined)
== END ==
LOC: LAB SHORT 07:25 → LAB 07:25
PROVIDERS: Internal Medicine Endocrinology, Diabetes & Metabolism
DX: E03.8 Other specified hypothyroidism (principal); R61 Generalized hyperhidrosis
CPT/HCPCS: 81050

== ENCOUNTER → 2020-12-08 | Outpatient (CLI) | payer OTHER | LOC: LAB 14:10 → LAB SHORT 14:10 | DX: E03.8 Other specified hypothyroidism (principal); R61 Generalized hyperhidrosis | CPT/HCPCS: 81050 ==

== ENCOUNTER 2021-01-13 13:16 | Day surgery (SDC) | payer OTHER ==
[~2021-01-13] VITALS: Ht 162.6 cm; Wt 102.3 kg
--- NOTE | 2021-01-13 15:35 | NUR ---
01/13/21 1535 KRISS PEDERSON APPOINTMENT MADE FOR PT W PCP FOR KIRSTEN 11AM PER MARILU REGARDING UPPER RESPIRATORY INFECTION POSSIBLE. PT NOTIFIED AND STATES SHE WILL BE THERE, PT FAM NOTIFIED WELL ABOUT APOINTMENT. END NOTE. ORSC.RDS
== END 2021-01-13 15:15 | disposition home or self-care (01) ==
LOC: ORSCSDS 13:16
PROVIDERS: Student in an Organized Health Care Education/Training Program
PROC: 0DB78ZX Excision of Stomach, Pylorus, Via Natural or Artificial Opening Endoscopic, Diagnostic (ICD-10-PCS; principal; 2021-01-13 14:30)
PROC: 0DB48ZX Excision of Esophagogastric Junction, Via Natural or Artificial Opening Endoscopic, Diagnostic (ICD-10-PCS; principal; 2021-01-13 14:30)
PROC: 0DB58ZX Excision of Esophagus, Via Natural or Artificial Opening Endoscopic, Diagnostic (ICD-10-PCS; principal; 2021-01-13 14:30)
PROC: 0D758ZZ Dilation of Esophagus, Via Natural or Artificial Opening Endoscopic (ICD-10-PCS; principal; 2021-01-13 14:30)
DX: R13.10 Dysphagia, unspecified (principal); B37.81 Candidal esophagitis; K22.2 Esophageal obstruction; K44.9 Diaphragmatic hernia without obstruction or gangrene; K25.9 Gastric ulcer, unspecified as acute or chronic, without hemorrhage or perforation; J44.9 Chronic obstructive pulmonary disease, unspecified; I10 Essential (primary) hypertension; E03.9 Hypothyroidism, unspecified; F17.210 Nicotine dependence, cigarettes, uncomplicated; Z79.899 Other long term (current) drug therapy
CPT/HCPCS: 88305; 88312; 88342; J2250; J2704; J7120

== ENCOUNTER → 2023-01-03 | Outpatient (CLI) | payer OTHER | END | disposition home or self-care (01) | LOC: LAB 11:42 → LAB SHORT 11:42 | DX: R05.1 Acute cough (principal) | CPT/HCPCS: 87070; 87205 ==

== ENCOUNTER → 2023-01-18 | Outpatient (CLI) | payer OTHER ==
[~2023-01-18] MED LIST changes: +AMLODIPINE BESYL5 MG PO; +AMOX-CLAV 875-1 EAC5; +ATORVASTATIN CA20 MG PO; +COMBIVENT RESPIM4 G1; +METOPROLOL SUCC25 MG PO; +TOPI100; +VENLAFAXINE HC225 MG PO
[2023-01-19 11:05] LABS: Alpha Feto Protein, Tumor Mkr 2.7 ng/mL (0.0-8.0); Cancer Antigen 125 111.5 U/mL (1.5-35.0); Cancer Antigen 19-9 228.9 U/mL (2.0-37.0); Carcinoembryonic Antigen 5.2 ng/mL (0.0-3.0)
== END ==
LOC: LAB 17:28 → LAB SHORT 17:28
PROVIDERS: Internal Medicine Hematology & Oncology
DX: C78.6 Secondary malignant neoplasm of retroperitoneum and peritoneum (principal); R97.8 Other abnormal tumor markers; C80.1 Malignant (primary) neoplasm, unspecified
CPT/HCPCS: 82105; 82378; 86301; 86304

== ENCOUNTER 2023-01-24 10:12 | Day surgery (SDC) | payer OTHER ==
[~2023-01-24] VITALS: Ht 162.6 cm; Wt 80.9 kg
[~2023-01-24 10:12] MED LIST changes: -AMLODIPINE BESYL5 MG PO; -AMOX-CLAV 875-1 EAC5; -ATORVASTATIN CA20 MG PO; -COMBIVENT RESPIM4 G1; -METOPROLOL SUCC25 MG PO; -TOPI100; -VENLAFAXINE HC225 MG PO
[2023-01-24] MEDS ORDERED: TOPI100 (10:33)
[2023-01-24] MEDS ORDERED: AMLODIPINE BESYL5 MG PO (10:33)
[2023-01-24] MEDS ORDERED: COMBIVENT RESPIM4 G1 (10:33)
[2023-01-24] MEDS ORDERED: VENLAFAXINE HC225 MG PO (10:34)
[2023-01-24] MEDS ORDERED: ATORVASTATIN CA20 MG PO (10:34)
[2023-01-24] MEDS ORDERED: AMOX-CLAV 875-1 EAC5 (10:35)
[2023-01-24] MEDS ORDERED: METOPROLOL SUCC25 MG PO (10:50)
--- NOTE | 2023-01-24 11:21 | NUR ---
01/24/23 1121 Elda Theodore LIDOCAINE 2% WITH EPI 1:100,000 DILUTED 1:1 WITH NORMAL SALINE TO MAKE LIDOCAINE 1% WITH EPI 1:200,000 FOR INJECTION AT THE OPSITE BY DR HARMAN.
--- NOTE | 2023-01-24 12:17 | NUR ---
01/24/23 1217 Yaakov Hlils PT HAD PERSISTENT COUGH IN PACU. ORDER OBTAINED FROM DR. RIVERS FOR DUONEB. DUONEB WILL BE GIVEN IN SDU.
[2023-01-24 15:25] VITALS: BP 94/67
== END 2023-01-24 13:18 | disposition home or self-care (01) ==
LOC: ORSCSDS 10:12
PROVIDERS: Otolaryngology
PROC: 07B10ZX Excision of Right Neck Lymphatic, Open Approach, Diagnostic (ICD-10-PCS; principal; 2023-01-24 11:45)
DX: C96.9 Malignant neoplasm of lymphoid, hematopoietic and related tissue, unspecified (principal); E03.9 Hypothyroidism, unspecified; I10 Essential (primary) hypertension; J44.9 Chronic obstructive pulmonary disease, unspecified; F17.210 Nicotine dependence, cigarettes, uncomplicated; K21.9 Gastro-esophageal reflux disease without esophagitis; Z79.899 Other long term (current) drug therapy
CPT/HCPCS: 88305; 88341; 88342; A9270; J0171; J2250; J2704; J3010; J7120

== ENCOUNTER 2023-01-31 15:29 | Emergency (ER) | payer OTHER ==
[~2023-01-31] VITALS: Ht 162.6 cm; Wt 79.4 kg
[~2023-01-31 15:29] MED LIST changes: +AMLODIPINE BESYL5 MG PO; +AMOX-CLAV 875-1 EAC5; +ATORVASTATIN CA20 MG PO; +LEVOTHYROXINE200 MCG PO; -LOSA50 PO; +LOSARTAN POTAS100 MG PO; +METO25ER PO; +OMEP20ER PO; -Omeprazole20 M1 PO; -Synthroid175 MCG PO; +TOPI100 PO; +VENLAFAXINE HC225 MG PO
[2023-01-31 15:35] VITALS: BP 117/88
[2023-01-31 15:50] LABS: BASOPHILS ABSOLUTE AUTO 0.12 K/mm3 (0.00-0.23); BASOPHILS PERCENT AUTO 1 % (0-2); EOSINOPHILS ABSOLUTE AUTO 0.66 K/mm3 (0.00-0.68); EOSINOPHILS PERCENT AUTO 7 % (0-6); Hematocrit 42.1 % (33.0-51.0); Hemoglobin 14.1 g/dL (11.5-16.0); IMMATURE GRAN ABSOLUTE AUTO 0.05 K/mm3 (0.00-0.10); IMMATURE GRAN PERCENT AUTO 1 % (0-1); LYMPHOCYTES ABSOLUTE AUTO 1.99 K/mm3 (0.84-5.20); LYMPHOCYTES PERCENT AUTO 20 % (21-46); MONOCYTES ABSOLUTE AUTO 0.81 K/mm3 (0.16-1.47); MONOCYTES PERCENT AUTO 8 % (4-13); Mean Corpuscular HGB Conc 33.5 g/dL (31.5-36.5); Mean Corpuscular Volume 86 fL (80-100); Mean Platelet Volume 10.3 fL (9.1-12.4); NEUTROPHILS ABSOLUTE AUTO 6.39 K/mm3 (1.96-9.15); NEUTROPHILS PERCENT AUTO 64 % (41-73); Platelet Count 276 K/mm3 (150-400); RDW Standard Deviation 40.9 fL (35.1-46.3); Red Blood Cell Count 4.87 M/mm3 (3.80-5.20); White Blood Cell Count 10.02 K/mm3 (4.00-11.30)
[2023-01-31 17:26] LABS: Albumin, Blood 3.2 g/dL (3.4-5.0); Albumin/Globulin Ratio 0.6 (0.8-1.8); Bilirubin, Total 0.4 mg/dL (0.1-1.0); Bun/Creatinine Ratio 24.3 (12.0-20.0); Calcium, Blood 9.3 mg/dL (8.5-10.1); Creatinine, Blood 1.07 mg/dL (0.40-1.00); Total Protein, Blood 8.2 g/dL (6.4-8.2)
== END 2023-01-31 18:56 | disposition home or self-care (01) ==
LOC: ER 15:29
PROVIDERS: Physician Assistant
DX: R20.2 Paresthesia of skin (principal); I10 Essential (primary) hypertension; E03.9 Hypothyroidism, unspecified; F41.9 Anxiety disorder, unspecified; F17.210 Nicotine dependence, cigarettes, uncomplicated; Z79.890 Hormone replacement therapy; Z79.899 Other long term (current) drug therapy
CPT/HCPCS: 70450; 80053; 85025; 93005; 93010; 99284-25

== ENCOUNTER 2023-02-05 15:11 | Inpatient (IN) | payer OTHER ==
[~2023-02-05] VITALS: Ht 167.6 cm; Wt 90.7 kg
[2023-02-05 16:08] LABS: Source, Urine Straight Cath
[2023-02-05 16:14] LABS: Base Excess Venous -5.4 mmol/L; Bicarbonate Venous 20.1 mmol/L (24.0-30.0); PCO2 Venous 39.3 mmHg (38-42); pH Blood Venous 7.33 (7.34-7.37)
[2023-02-05 16:15] LABS: Appearance, Urine Hazy (Clear); Blood, Urine 3+ (Neg); Color, Urine Yellow (P-Yellow); Glucose Qualitative, Urine Neg (Neg); Ketones, Urine 2+ (Neg); Leukocyte Esterase, Urine 1+ (Neg); Nitrite, Urine Neg (Neg); Protein, Urine 2+ (Neg); Specific Gravity, Urine 1.025 (1.003-1.022)
[2023-02-05 16:18] LABS: Urobilinogen, Urine NORM (Normal)
[2023-02-05 16:37] LABS: BASOPHILS ABSOLUTE AUTO 0.11 K/mm3 (0.00-0.23); BASOPHILS PERCENT AUTO 1 % (0-2); EOSINOPHILS ABSOLUTE AUTO 0.57 K/mm3 (0.00-0.68); EOSINOPHILS PERCENT AUTO 6 % (0-6); Hematocrit 37.7 % (33.0-51.0); Hemoglobin 12.5 g/dL (11.5-16.0); IMMATURE GRAN ABSOLUTE AUTO 0.04 K/mm3 (0.00-0.10); IMMATURE GRAN PERCENT AUTO 0 % (0-1); LYMPHOCYTES ABSOLUTE AUTO 1.96 K/mm3 (0.84-5.20); LYMPHOCYTES PERCENT AUTO 20 % (21-46); MONOCYTES ABSOLUTE AUTO 0.75 K/mm3 (0.16-1.47); MONOCYTES PERCENT AUTO 8 % (4-13); Mean Corpuscular HGB 28.7 pg (26.0-34.0); Mean Corpuscular HGB Conc 33.2 g/dL (31.5-36.5); Mean Corpuscular Volume 87 fL (80-100); Mean Platelet Volume 11.2 fL (9.1-12.4); NEUTROPHILS ABSOLUTE AUTO 6.29 K/mm3 (1.96-9.15); NEUTROPHILS PERCENT AUTO 65 % (41-73); Platelet Count 205 K/mm3 (150-400); RDW Coefficient Variation 12.8 % (11.7-14.2); RDW Standard Deviation 40.7 fL (35.1-46.3); Red Blood Cell Count 4.35 M/mm3 (3.80-5.20); White Blood Cell Count 9.72 K/mm3 (4.00-11.30)
[2023-02-05 16:47] LABS: Influenza A, PCR NEGATIVE (NEGATIVE); Influenza B, PCR NEGATIVE (NEGATIVE); Resp Syncytial Virus, PCR NEGATIVE (NEGATIVE); SARS-Cov-2 (COVID-19) PCR, MMC NEGATIVE (NEGATIVE)
[2023-02-05 16:59] LABS: Bilirubin, Urine 1+ (Neg)
[2023-02-05 17:01] LABS: Mucus Light (0-Heavy); Squamous Epithelial Cells Mod /hpf (Few); Transitional Epithelial Cells Few /hpf (0-Rare)
[2023-02-05 17:02] LABS: Amorphous Light (0-Heavy); Bacteria Many /hpf; Renal Epithelial Rare /hpf (0-Rare); White Blood Cells, Urine 0-2 /hpf (0-5)
[2023-02-05 17:07] LABS: U Amphetamine Screen Not Detected; U Barbituate Screen Not Detected; U Benzodiazapine Screen Not Detected; U Buprenorphine Screen Not Detected; U Cannabinoids Screen Not Detected; U Cocaine Screen Not Detected; U Methadone Screen Not Detected; U Methamphetamine Screen Not Detected; U Opiates Screen Not Detected; U Oxycodone Screen Not Detected; U Phencyclidine Screen Not Detected
[2023-02-05 17:22] LABS: Ethanol (Alcohol), Blood, Med <3 mg/dL; Magnesium, Blood 1.8 mg/dL (1.6-2.4)
[2023-02-05 17:26] LABS: Alanine Aminotransfer (ALT/SGP 13 U/L (12-78); Albumin, Blood 2.7 g/dL (3.4-5.0); Albumin/Globulin Ratio 0.6 (0.8-1.8); Alk Phos 64 U/L (50-136); Anion Gap 9 mmol/L (6-16); Aspartate Aminotrans (AST/SGOT 23 U/L (12-37); Bilirubin, Total 0.3 mg/dL (0.1-1.0); Blood Urea Nitrogen 27 mg/dL (8-24); Bun/Creatinine Ratio 22.1 (12.0-20.0); CO2, Blood 21 mmol/L (21-32); Calcium, Blood 8.7 mg/dL (8.5-10.1); Chloride, Blood 109 mmol/L (98-108); Creatinine, Blood 1.22 mg/dL (0.40-1.00); Globulin, Blood 4.5 g/dL (2.2-4.0); Glomerular Filtration Rate 51 (60-); Glucose, Blood 91 mg/dL (70-99); Potassium, Blood 4.1 mmol/L (3.5-5.5); Sodium, Blood 139 mmol/L (136-145); Total Protein, Blood 7.2 g/dL (6.4-8.2)
[2023-02-05] MEDS ORDERED: ALAVERT PO (18:31)
[2023-02-05] MEDS ORDERED: BUTALB-ACETAMI1 EAC5 PO (18:31)
[2023-02-05] MEDS ORDERED: FLUTICASONE PRO16 GM (18:32)
--- NOTE | 2023-02-05 21:22 | NUR ---
REPORT RECIEVED FROM LUIS AVENDANO RN AND AWAITING PT T/F TO ROOM 304.
[2023-02-05 21:50] VITALS: BP 121/80
[2023-02-05] MEDS ORDERED: TRELEGY ELLIPT1 EAC1 INH (22:07)
[2023-02-06 03:38] VITALS: BP 134/86
[2023-02-06 05:47] LABS: Hematocrit 37.6 % (33.0-51.0); Hemoglobin 12.5 g/dL (11.5-16.0); Mean Corpuscular HGB 28.8 pg (26.0-34.0); Mean Corpuscular HGB Conc 33.2 g/dL (31.5-36.5); Mean Corpuscular Volume 87 fL (80-100); Mean Platelet Volume 11.2 fL (9.1-12.4); Platelet Count 193 K/mm3 (150-400); RDW Coefficient Variation 12.9 % (11.7-14.2); RDW Standard Deviation 40.5 fL (35.1-46.3); Red Blood Cell Count 4.34 M/mm3 (3.80-5.20); White Blood Cell Count 8.72 K/mm3 (4.00-11.30)
[2023-02-06 06:05] LABS: Calcium, Blood 8.5 mg/dL (8.5-10.1); Creatinine, Blood 1.04 mg/dL (0.40-1.00); Potassium, Blood 3.6 mmol/L (3.5-5.5)
--- NOTE | 2023-02-06 06:54 | NUR ---
SUMMARY: PT T/F VIA GURNEY TO ROOM 304 AT 2140 W/FAMILY AT BEDSIDE. SHE WAS ORIENTED TO ROOM AND CALL SYSTEM W/BED ALARM ARMED FOR HEIGHTENED FALL RISK. PT A/O TO SELF, FAMILY AND "HOSPITAL" BUT WAS UNAWARE OF TOWN, DATE OR SPECIFICS. SHE'S ABLE TO ANSWER MOST Q'S CORRECTLY, FOLLOWS COMMANDS AND CAN TRACK W/EYES BUT R.SIDE GAZE WAS OBSERVED. SHE HAS A L.FACIAL DROOP AND EXHIBITS A ROLLING/PROTRUDING MOTION OF HER TONGUE. PT REMAINED NPO PENDING ST EVAL THIS AM. FAMILY STATED SHE HAS LIMITED ROM OF SHOULDERS AT BASELINE BUT SHE'S TYPICALLY INDEPENDENT AND SELF CARES FOR ADL'S. GENERAL WEAKNESS NOTED BUT PT HAS SLIGHT L.SIDE DEFECIT PARTICULARLY TO L.HEALTH CARE ANALYST AND LLE. SHE WAS ABLE TO STAND TO USE BSC BUT GAIT WAS SHUFFLED/UNSTEADY AND PT WAS UNABLE TO TURN/PIVOT. MRI IS PENDING. NS INFUSES PER EMAR. MOUTH CARE PERFOMED AND ATTENDS CHANGED PRN FOR INCONTINENCE. SHE DENIED PAIN AND ALL OTHER COMPLAINTS. VSS/AFEBRILE, NO ACUTE CHANGES. WCTM AND REPORT TO DAY RN.
[2023-02-06 09:49] VITALS: BP 128/96
[2023-02-06 16:44] VITALS: BP 135/93
--- NOTE | 2023-02-06 17:47 | NUR ---
SHIFT SUMMARY: PT IS A 62 YEAR OLD FEMALE HERE FOR A CVA. SHE HAS UNDERWENT AN ECHO, CAROTID STUDY, AND MRI OF HEAD. SHE HAS SUFFERED BILATERAL DEFICITS POST STROKE; LEFT WORSE THAN RIGHT. SHE ANSWERS QUESTIONS APPROPRIATELY WHEN ABLE. SHE CAN BE SLOW TO RESPOND AND TAKES TIME TO THINK PRIOR TO ANSWERING. SHE HAS RIGHT SIDED FACIAL DROOP AND HAS POOR MOUTH/TONGUE COORDINATION WHICH MAKES EATING AND DRINKING DIFFICULT. SHE WAS EVALUATED BY SPEECH THERAPY TODAY AND WAS PLACED ON A PUREE DIET, WHICH SHE HAS TOLERATED WELL, BUT AT TIMES WILL STRUGGLE WITH LIQUIDS WITH A STRAW AND WHOLE ORAL MEDICATIONS. I DID TRY DIFFERENT FORMS OF ORAL MEDICATION ADMINISTERATION WITH THE PATIENT TODAY AND DID FIND THAT CRUSHING MEDICATIONS AND DELIVERING WITH APPLESAUCES WAS MOST SUCCESSFUL. SHE HAS A HARD TIME GETTING WHOLE PILLS DOWN WITH HER TONGUE COORDINATION AND THE PILLS WILL STAY IN HER MOUTH. (SHE WAS ABLE TO SWALLOW HER MORNING ASPIRIN THIS MORNING WITH WATER) (STRUGGLED WITH HER LIPITOR THIS AFTERNOON, REQUIRED APPLESAUCE, BUT REMAINED WHOLE) (GAVE FIORICET CRUSHED WTIH APPLESAUCE) SHE IS WEIGHTBEARING AND IS ABLE TO MOVE ALL EXTREMITIES, SHE IS UNSTEADY ON HER FEET DUE DEFICITS/COORDINATION. PATIENT IS IN BED, CALL LIGHT WITHIN REACH, FAMILY AT BEDSIDE, AND NO SIGNS OF SYMPTOMS OF DISTRESS. PLAN OF CARE ONGOING.
[2023-02-06 20:45] VITALS: BP 127/96
[2023-02-07 02:41] VITALS: BP 132/98
[2023-02-07 05:15] LABS: Hematocrit 36.5 % (33.0-51.0); Hemoglobin 12.2 g/dL (11.5-16.0); Mean Corpuscular HGB 28.8 pg (26.0-34.0); Mean Corpuscular HGB Conc 33.4 g/dL (31.5-36.5); Mean Corpuscular Volume 86 fL (80-100); Mean Platelet Volume 11.1 fL (9.1-12.4); Platelet Count 184 K/mm3 (150-400); RDW Standard Deviation 40.7 fL (35.1-46.3); Red Blood Cell Count 4.24 M/mm3 (3.80-5.20); White Blood Cell Count 7.81 K/mm3 (4.00-11.30)
[2023-02-07 05:40] LABS: Albumin, Blood 2.7 g/dL (3.4-5.0); Anion Gap 5 mmol/L (6-16); Blood Urea Nitrogen 22 mg/dL (8-24); CO2, Blood 24 mmol/L (21-32); Calcium, Blood 8.7 mg/dL (8.5-10.1); Chloride, Blood 112 mmol/L (98-108); Creatinine, Blood 1.05 mg/dL (0.40-1.00); Glomerular Filtration Rate 61 (60-); Glucose, Blood 92 mg/dL (70-99); Phosphorus, Blood 3.3 mg/dL (2.5-4.9); Potassium, Blood 3.5 mmol/L (3.5-5.5); Sodium, Blood 141 mmol/L (136-145)
--- NOTE | 2023-02-07 06:40 | NUR ---
SUMMARY: PT A/OX3 W/MENTATION CONTINUING TO IMPROVE. SHE'S NOW MORE AWARE SITUATION AND RECENT EVENTS. STRENGTH TO L.SIDE IS GETTING BETTER BUT L.FACIAL DROOP PERSISTS. PT IS TOLERATING DIET W/ASPIRATION PREC'S MAINTAINED BUT SHE REQ'S PILLS CRUSHED IN APPLESAUCE NOW D/T LACKING TONGUE COORDINATION. PT IS 2PA TO BSC AND HAD PUREWIC PLACED FOR URGE/STRESS INCONTINENCE. OCC HARSH HACKING COUGH OBSERVED AND RT PROVIDED MEDS FOR WHEEZING. SHE'S NSR-S.TACH ON TELE AT 90'S-100'S BPM. NO ACUTE CHANGES, VSS/AFEBRILE. WCTM/REPORT TO DAY RN.
[2023-02-07 07:07] VITALS: BP 136/95
--- NOTE | 2023-02-07 18:23 | NUR ---
SUMMARY- PT A/O X3, CONT WITH SOME NEURO DEFICITS BUT IMPROVING. PT UP TO THE CHAIR WITH 1-2 SBA AND WALKER. GOOD STRENGTH, POOR COORDINATION. R GAZE, SPEECH SLOW, SWALLOW WEAK, ON PUREE, CRUSHED PILLS TOLERATING WITH NO ASPIRATION. HAS HAD A HEADACHE ALL DAY. MEDICATED WITH IMMATREX TODAY WITH NO FELEIF. MEDICATED WITH FENTANYL THIS PM FOR NECK TENTION AND PAIN. HELPFUL TO RELEIVE PAIN, NAPPED AFTER MED. APPLIED HEAT TO NECK, ALSO HELPFUL. PT'S LUNGS REMAIN COARSE AT TIMES. FREQ [place] COPD COUGH WITH MIN PRODUCTION. PLAN FOR PT TO DC HOME WITH HOME HEALTH AND START CANCER TX WITH [facility]. FAMILY NOT READY FOR HOSPICE. LG FAMILY WITH MULTIPLE VISITORE IN/OUT THROUGHOUT THE DAY. NEVER LEFT WITHOUT SOMEONE. PT TAKING IN SMALL AMOUNTS OF FOOD, IS A FEEDER. ALSO DRINKS LIQUID WITH QUES ONLY. INCONT URINE. WILL REPORT TO NOC JAMEEL
[2023-02-07 19:45] VITALS: BP 128/81
[2023-02-08 04:06] VITALS: BP 133/98
--- NOTE | 2023-02-08 04:34 | NUR ---
PATIENT IS ALERT AND ORIENTED X 3; NO COMPLAINT OF CHEST PAIN; WITH PIV ON RIGHT AC PATENT AND INTACT AND FLUSHING AND ON SALINE LOCK; ON TELE SINUS RHYTHM/93; SBA X 1 ASSIST; ABLE TO TAKE PILLS WHOLE WITHOUT ANY ISSUE; INCONTINENT, PURE WICK PLACED; NO SKIN ISSUES NOTED.
[2023-02-08 07:27] VITALS: BP 125/94
--- NOTE | 2023-02-08 08:42 | NUR ---
MEDICATION ADMINISTRATION FOR PATIENT WAS CHANGED TO CRUSHED. MEDICATION CHANGES CONFIRMED WITH PHARMACY ON MEDICATION LIST AND CONFIRMED WITH DR. ROBERTS NEW ORDERED PLACED.
[2023-02-08 16:08] VITALS: BP 113/82
--- NOTE | 2023-02-08 18:18 | NUR ---
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 SHE IS LEFT SIDE NEGLECTFUL. SHE IS DOING BETTER TODAY THAN YESTERDAY. (SEE SHIFT ASSESSMENT FOR FURTHER DETAILS) PLAN IS TO DISCHARGE HOME TOMORROW WITH HOME HEALTH. SHE IS IN HER BEDSIDE RECLINER EATING DINNER, FAMILY AT BEDSIDE. NO SIGNS OR SYMPTOMS OF DISTRESS. PLAN OF CARE ONGOING.
[2023-02-08 19:23] VITALS: BP 110/84
--- NOTE | 2023-02-09 00:37 | NUR ---
PATIENT IS ALERT AND ORIENTED X2-3 WITH FAMILY MEMBERS INSIDE. WITH PIV ON RIGHT AC NOTED; ON TELE SINUS/94; RIGHT SIDE GAZE NOTED.WILL CONTINUE TO MONITOR.
[2023-02-09 04:32] VITALS: BP 125/94
--- NOTE | 2023-02-09 04:59 | NUR ---
PATIENT IS ALERT AND ORIENTED X3; ON TELE SINUS TACHY/102; WITH PIV LINE ON RIGHT AC. NEEDS ATTENDED; ON 1 PERSON ASSIST. TAKING CRUSHED PILLS WITH APPLE SAUCE WITHOUT ANY ISSUES. ANTICIPATES HER DISCHARGE TODAY.
[2023-02-09 07:55] VITALS: BP 136/91
[2023-02-09] MEDS ORDERED: METO25 PO (11:06)
[2023-02-09] MEDS ORDERED: VENL75ER PO (11:07)
[2023-02-09] MEDS ORDERED: ASPI81CH PO (11:07)
[2023-02-09] MEDS ORDERED: KONVOMEP 2-84 M90 ML PO (11:08)
--- NOTE | 2023-02-09 11:41 | NUR ---
SHIFT/DISCHARGE SUMMARY: NO NEW CHANGES IN PATIENT CONDITION THIS SHIFT. PATIENT IS AWAKE, ALERT AND ORIENTED TO SELF, PLACED AND FAMILY AT BEDSIDE. REPORTS HEADACHE 10/10, MEDICATED c PRN PAIN MEDS c GOOD EFFECT. PATIENT TAKES MEDS CRUSHED c APPLE SAUCE AND TOLERATING WELL. PATIENT DENIES CP/PRESSURE, N/V, DIZZINESS, N/T AND SOB. PATIENT STILL ON TELE, SR HR IN THE 90'S BPM. PATIENT REPORTS "I'M READY TO GO HOME TODAY." AND NO NEW COMPLAINTS OR CONCERNED. PIV TO RAC DC'D. PATIENT DISCHARGE HOME c HHS. DISCHARGE INSTRUCTION PACKET GIVEN TO PATIENT/FAMILY AT BEDSIDE. EDUCATE PATIENT/FAMILY REGARDING ADMITTING DX'S OF ACUTE CVA, S/S, TX, HHS, ASPIRATION PRECAUTION, MOBILITY, TO TAKE MEDS PRESCRIBED, FOLLOW UP c ONCOLOGY/PCP, AND SELF CARE. PATIENT/FAMILY VERBALIZED UNDERSTANDING AND NO FURTHER QUESTIONS AT THIS TIME. RX WAS FAXED TO PATIENT PREFERRED PHARMACY([facility]). ALL PATIENT PERSONAL BELONGINGS WERE SENT HOME c THE PATIENT. PATIENT LEFT THE ROOM AT 1141 AND WAS TRANSPORTED VIA WHEELCHAIR BY LIZBETH LUKE CNA TO PATIENT ENTRANCE.
[2023-02-10 23:13] LABS: THYROGLOBULIN ANTIBODY 712.8 IU/mL (0.0-4.0)
== END 2023-02-09 11:59 | disposition home health service (06) | DRG 64 ==
LOC: ER 15:11 → MEDS 21:07
PROVIDERS: Emergency Medicine; Internal Medicine; Nurse Practitioner Acute Care; ADMIT Internal Medicine
DX: I63.9 Cerebral infarction, unspecified (principal); G92.8 Other toxic encephalopathy; C78.6 Secondary malignant neoplasm of retroperitoneum and peritoneum; J44.9 Chronic obstructive pulmonary disease, unspecified; Z66 Do not resuscitate; D73.5 Infarction of spleen; I10 Essential (primary) hypertension; R47.81 Slurred speech; R29.810 Facial weakness; E78.5 Hyperlipidemia, unspecified; E03.9 Hypothyroidism, unspecified; K21.9 Gastro-esophageal reflux disease without esophagitis; F32.A Depression, unspecified; F17.210 Nicotine dependence, cigarettes, uncomplicated; Z79.899 Other long term (current) drug therapy; Z79.51 Long term (current) use of inhaled steroids; Z79.890 Hormone replacement therapy; Z98.890 Other specified postprocedural states; Z98.51 Tubal ligation status
CPT/HCPCS: 0241U; 36415; 51701; 70450; 70551; 71045; 74177; 80048; 80053; 80069; 81001; 82140; 82803; 83735; 83880; 84432; 84443; 85025; 85027; 86800; 87086; 92526; 92610; 93005; 93010; 93306; 93308; 93321; 93880; 94640; 94664; 94760; 96361-59; 96374-59; 97110; 97112; 97116; 97162; 97165; 97530; 99285-25; A9270; C9113; J1650; J2060; J2405; J3010; J7030; J7120; Q9967

== ENCOUNTER 2023-06-19 19:41 | Emergency (ER) | payer OTHER ==
[~2023-06-19] VITALS: Ht 162.6 cm; Wt 69.0 kg
[2023-06-20 01:14] VITALS: BP 107/89
== END 2023-06-20 01:14 | disposition home or self-care (01) ==
LOC: ER 19:41
DX: R79.1 Abnormal coagulation profile (principal); I10 Essential (primary) hypertension; E03.9 Hypothyroidism, unspecified; Z86.73 Personal history of transient ischemic attack (TIA), and cerebral infarction without residual deficits; Z79.51 Long term (current) use of inhaled steroids; Z79.82 Long term (current) use of aspirin; Z79.899 Other long term (current) drug therapy; R07.89 Other chest pain

== ENCOUNTER → 2023-06-19 | Outpatient (CLI) | payer OTHER ==
[~2023-06-19] MED LIST changes: +ALAVERT PO; +ASPI81CH PO; +BUTALB-ACETAMI1 EAC5 PO; +FLUTICASONE PRO16 GM; +KONVOMEP 2-84 M90 ML PO; +METO25 PO; +TRELEGY ELLIPT1 EAC1 INH; +VENL75ER PO
[2023-06-19 18:25] LABS: BASOPHILS ABSOLUTE AUTO 0.03 K/mm3 (0.00-0.23); BASOPHILS PERCENT AUTO 1 % (0-2); EOSINOPHILS PERCENT AUTO 0 % (0-6); Hematocrit 29.5 % (33.0-51.0); Hemoglobin 9.6 g/dL (11.5-16.0); IMMATURE GRAN ABSOLUTE AUTO 0.01 K/mm3 (0.00-0.10); IMMATURE GRAN PERCENT AUTO 0 % (0-1); LYMPHOCYTES ABSOLUTE AUTO 0.88 K/mm3 (0.84-5.20); LYMPHOCYTES PERCENT AUTO 23 % (21-46); MONOCYTES ABSOLUTE AUTO 0.53 K/mm3 (0.16-1.47); MONOCYTES PERCENT AUTO 14 % (4-13); Mean Corpuscular HGB 27.3 pg (26.0-34.0); Mean Corpuscular HGB Conc 32.5 g/dL (31.5-36.5); Mean Corpuscular Volume 84 fL (80-100); Mean Platelet Volume 9.6 fL (9.1-12.4); NEUTROPHILS ABSOLUTE AUTO 2.36 K/mm3 (1.96-9.15); NEUTROPHILS PERCENT AUTO 62 % (41-73); Platelet Count 311 K/mm3 (150-400); RDW Coefficient Variation 14.5 % (11.7-14.2); RDW Standard Deviation 44.2 fL (35.1-46.3); Red Blood Cell Count 3.52 M/mm3 (3.80-5.20); White Blood Cell Count 3.81 K/mm3 (4.00-11.30)
[2023-06-19 18:40] LABS: Albumin, Blood 2.1 g/dL (3.4-5.0); Albumin/Globulin Ratio 0.4 (0.8-1.8); Bilirubin, Total 0.2 mg/dL (0.1-1.0); Bun/Creatinine Ratio 16.2 (12.0-20.0); Calcium, Blood 8.6 mg/dL (8.5-10.1); Creatinine, Blood 1.17 mg/dL (0.40-1.00); Globulin, Blood 4.7 g/dL (2.2-4.0); Potassium, Blood 3.1 mmol/L (3.5-5.5); Total Protein, Blood 6.8 g/dL (6.4-8.2)
== END | disposition home or self-care (01) ==
LOC: LAB SHORT 18:21 → LAB 18:21
PROVIDERS: Physician Assistant Medical
DX: R07.89 Other chest pain (principal)
CPT/HCPCS: 80053; 84484; 85025; 85379

== ENCOUNTER → 2023-09-05 | Outpatient (CLI) | payer OTHER | END | disposition home or self-care (01) | LOC: LAB SHORT 14:50 → LAB 14:50 | DX: R39.198 Other difficulties with micturition (principal) | CPT/HCPCS: 87086 ==